=== PATIENT | female | born 1945 | race African-American/Black ===

== ENCOUNTER → 2024-10-22 | Outpatient (CLI) | payer MEDICARE, MEDICAID, SELFPAY ==
--- NOTE | 2024-10-22 16:00 | XR_ITS ---
Examination: Thyroid sonography complete Technique: Grayscale sonographic images thyroid lobes Exam date and time: October 18, 2024 1529 hrs. Indications: Thyromegaly on outside MRI examination performed one week ago Findings: Right thyroid 7.1 cm, 3.7 x 2.3 x 2.8 cm midpole nodule Left thyroid 6.4 cm, lower pole 1.9 x 0.9 x 1.3 cm Impression: Bilateral thyroid nodules, consider ultrasound-guided fine-needle aspiration of the large nodule in the mid right thyroid, 3.7 x 2.3 x 2.8 cm Significant thyromegaly
== END | disposition home or self-care (01) ==
PROVIDERS: PCP Behavior Technician; Referring Provider Behavior Technician; Visit Provider Behavior Technician
DX: E04.2 Nontoxic multinodular goiter (principal)
CPT/HCPCS: 76536

== ENCOUNTER → 2024-11-18 | Outpatient (CLI) | payer MEDICARE, MEDICAID, SELFPAY ==
[2024-11-17 14:21] LABS: Basophils % (Auto) 0 % (0-2.5); Eosinophils # (Auto) 0.1 Thou/mm3 (0.0-0.5); Eosinophils % (Auto) 1 % (0-10); Hematocrit 43.4 % (36.0-46.0); Hemoglobin 13.5 g/dL (12.0-16.0); Immature Granulocytes % (Auto) 0 % (0-0); Immature Granulocytes Auto 0.01 Thou/mm3 (0.00-0.00); Lymphocytes # (Auto) 2.3 Thou/mm3 (1.0-4.8); Lymphocytes % (Auto) 38 % (10-50); Mean Corpuscular HGB Conc 31.1 g/dl (31.0-37.0); Mean Corpuscular Hemoglobin 27.8 pg (25.0-35.0); Mean Corpuscular Volume 90 fL (80-100); Monocytes # (Auto) 0.5 Thou/mm3 (0.0-0.8); Monocytes % (Auto) 9 % (0-12); Neutrophils # (Auto) 3.1 Thou/mm3 (1.8-7.7); Neutrophils % (Auto) 51 % (37-80); Nucleated Red Blood Cell % 0 /100 WBC (0); Platelet Count 212 Thou/mm3 (140-440); RDW Standard Deviation 53.5 fL (36.4-46.3); Red Blood Count 4.85 Miln/mm3 (4.00-5.20)
[2024-11-17 14:29] LABS: INR 1.1 (0.9-1.3); Partial Thromboplastin Time 26.3 Seconds (22.0-36.0); Prothrombin Time 11.6 Seconds (9.0-12.2)
--- NOTE | 2024-11-18 09:30 | XR_ITS ---
Examination: Ultrasound-guided fine needle percutaneous aspiration thyroid nodule, mid right thyroid nodule. Thyroid sonography, limited Exam date and time: November 18, 2024 at 1043 hours INDICATIONS: Large mid pole right thyroid nodule on thyroid sonogram October 22, 2024. Technique: A timeout was completed verifying correct patient, procedure, site, positioning and special equipment if applicable. The patient was placed in supine position for the thyroid fine needle percutaneous aspiration The patient's right neck was prepped and draped in sterile fashion. Maximum barrier sterile technique, hand hygiene, ultrasound sterile technique. 1% lidocaine was used to anesthetize the skin and subcutaneous tissues to the patient's right thyroid nodule. Multiple fine needle aspirations were performed and multiple thyroid specimens placed in preservative according to the irm protocol. Specimens appears satisfactory. The attending radiologist was present for the entire procedure. Estimated blood loss 3 cc. The patient tolerated the procedure well and there were no complications. Impression: Successful ultrasound-guided fine-needle percutaneous aspiration thyroid nodule, right mid thyroid nodule.
== END | disposition home or self-care (01) ==
PROVIDERS: Radiology Diagnostic Radiology; PCP Behavior Technician; Referring Provider Behavior Technician; Visit Provider Behavior Technician
DX: E04.1 Nontoxic single thyroid nodule (principal)
CPT/HCPCS: 36415; 85025; 85610; 85730

== ENCOUNTER 2024-11-20 08:36 | Outpatient (AMB) | payer MEDICARE, MEDICAID, SELFPAY ==
[2024-11-20 08:47] VITALS: BP 143/79; PULSE 67; RESP 18; TEMP 36.4; O2SAT 90; BMI 45.7
--- NOTE | 2024-11-20 08:47 | PD.ORTHCLVIS ---
Vital signs 11/20/24 08:47 Height 1.57 m Height Method Stated Weight 113.483 kg Weight Measurement Method Standing Scale BMI 45.7 BP 143/79 H Blood Pressure Source Automatic Cuff Blood Pressure Location Left Upper Arm Position Sitting Respiration 18 Pulse 67 Pulse Source Monitor Temp 97.6 F Temp Source Temporal Artery Scan Pulse Oximetry (%) 90 L Oxygen Delivery Method Room Air Med/Allergies Allergies & Medications Allergies No Known Allergies Allergy (Verified 11/20/24 08:54) Medication Reconciliation Unobtainable 11/20/24 [History Confirmed 11/20/24] Exam Exam Patient is in no acute distress and is cooperative with the examination today. Breathing is nonlabored. Patient has a normal mood and affect. Bilateral extremities were evaluated and demonstrates sensation intact to light touch. Palpable pedal pulses are present. No significant edema is present. Bilateral hips were examined. The patient has no pain with log roll of the hips. Internal rotation to 30 degrees and external rotation to 30 degrees is painless. Negative FADIR. Right knee incision is clean dry and intact Left knee was examined today. The left knee is in varus alignment. Range of motion from 0-115 degrees. Knee is stable to varus and valgus as well as AP translation with <5mm. Patient has a negative McMurrays. There is no pain with patellofemoral compression and no crepitus noted. The knee is tender to palpation medially. Assessment and Plan Problem List (1) Arthritis of left knee: Status: Acute Plan: Patient is a morbidly obese female with diabetes and severe left knee arthritis. We would like to get weightbearing x-rays as it is only an MRI on record which shows degenerative changes. We discussed the importance of weight loss. I would like to see the patient back in approximately 2 months as she had an injection 1 month ago. We discussed that if she loses enough weight and is optimized medically, we can discuss possible total knee replacement. She would need to be optimized medically first Advanced Care Planning Discussion Advance care planning discussed with:: patient Office Procedures GNS Level of Care Nursing/Assessment Patient Status: Initial/New Patient Nursing Assessment/Reassesment: Medication Reconciliation, Update PMH in EMR and Vital Signs Coordination of Care: Complex Care and Chronic Disease 1-5, Education Complex Pt/Fam, Consent,records obtained, informed consent, 1 Ins Authorization, Lab and Imaging orders, Results/Orders obtained and Staff clarify orders New Patient Charge New Patient Point Assignment: [id number] New Patient Point Charge: ENGINEER AUTOMATED EQUIPMENT Level 4 (3677-2081) PR Intake Visit Data Collection New Patient or Established: New Patient (never been to [facility]) Reason for Visit:: LEFT KNEE PAIN Housekeeping Aid Required: No PCP or OBGYN visit in last 3 months: Yes Hx Now: No Authorities Contacted: N/A Questionairres Past Medical History Past Medical History Have you ever been diagnosed with any of the following: Cardiology Problems Hypercholesterolemia: Yes Hypertension: Yes Respiratory Problems Smoking: No Smoking Exposure: No Endocrine Problems Diabetes Mellitus Type 2: Yes Surgical History Total Knee Replacement: Yes (2020 RIGHT) Subjective Visit Visit for: new patient and knee (LEFT) Immunization / Flu Flu Vaccine in the Last 12 Months: Yes Flu Vaccine Exclusion Criteria: Already Received History of Present Illness Chief complaint: Bilateral knee pain Christine is a pleasant 78-year-old female with bilateral knee pain and left knee arthritis. The left knee pain is significantly worse than the right. She had a right total knee replacement the past. She uses a walker. She reports she has significant back pain as well. She reports that the left knee is starting to bother her quite a bit. She had 1 injection a month ago. Personal History Occupation: RETIRED Pain Pain level (0-10): 6 Pain duration: WITH MOVEMENT Pain location: inside (medial) Pain quality: sharp, dull and aching Pain timing: night, increases with activity and stairs Associated signs & symptoms: numbness, weakness and stiffness Ambulatory data Ambulatory device: walker Treatments Number of previous injections: 1 Improvement with previous injections: No Improvement with PT: No Improvement with NSAIDS: no Review of Systems Review of Systems: All systems negative unless otherwise noted in HPI.
--- NOTE | 2024-11-20 09:01 | XR_ITS ---
Examination: Bilateral knees 2 views Right lateral knee left lateral knee 2 views Bilateral axial knees single view TECHNIQUE: Bilateral AP knees single view standing, bilateral PA knees single view standing flexion Standing right lateral knee left lateral knee 2 views Bilateral axial knees single view Exam date and time: November 20, 2024 0905 hours INDICATIONS: Right knee replacement several years ago, left knee pain after falling 2022 FINDINGS: Total right knee arthroplasty. Satisfactory alignment. No loosening of the prosthetic components No patellar dislocation Advanced narrowing [id number] medial joint space left knee Significant osteoarthritis lateral and patellofemoral joints No fracture IMPRESSION: Advanced narrowing [id number] medial joint space left knee Significant osteoarthritis lateral patellofemoral joints left knee
== END 2024-11-20 09:08 | disposition home or self-care (01) ==
LOC: HODSRG 08:36
PROVIDERS: PCP Behavior Technician; Referring Provider Behavior Technician; Supervising Provider Orthopaedic Surgery Adult Reconstructive Orthopaedic Surgery; Visit Provider Orthopaedic Surgery Adult Reconstructive Orthopaedic Surgery
DX: M17.12 Unilateral primary osteoarthritis, left knee (principal); M25.562 Pain in left knee; M25.561 Pain in right knee; E11.9 Type 2 diabetes mellitus without complications; I10 Essential (primary) hypertension; E78.00 Pure hypercholesterolemia, unspecified; E66.01 Morbid (severe) obesity due to excess calories; Z68.42 Body mass index [BMI] 45.0-49.9, adult
CPT/HCPCS: 73564; 99204; G0463

== ENCOUNTER 2025-01-20 09:50 | Outpatient (AMB) | payer MEDICARE, MEDICAID, SELFPAY ==
[2025-01-20 10:23] VITALS: BP 108/65; PULSE 68; RESP 17; TEMP 36.3; O2SAT 93; BMI 46.5
--- NOTE | 2025-01-20 10:23 | PD.ORTHCLVIS ---
Vital signs 01/20/25 10:23 Height 1.57 m Height Method Stated Weight 114.816 kg Weight Measurement Method Standing Scale BMI 46.5 BP 108/65 Blood Pressure Source Automatic Cuff Blood Pressure Location Right Upper Arm Position Sitting Respiration 17 Pulse 68 Pulse Source Monitor Temp 97.3 F Temp Source Temporal Artery Scan Pulse Oximetry (%) 93 L Oxygen Delivery Method Room Air Med/Allergies Allergies & Medications Allergies No Known Allergies Allergy (Verified 01/20/25 10:24) Medication Reconciliation Unobtainable 11/20/24 [History Confirmed 01/20/25] Exam Exam Patient is in no acute distress and is cooperative with the examination today. Breathing is nonlabored. Patient has a normal mood and affect. Bilateral extremities were evaluated and demonstrates sensation intact to light touch. Palpable pedal pulses are present. No significant edema is present. Bilateral hips were examined. The patient has no pain with log roll of the hips. Internal rotation to 30 degrees and external rotation to 30 degrees is painless. Negative FADIR. Right knee incision is clean dry and intact Left knee was examined today. The left knee is in varus alignment. Range of motion from 0-115 degrees. Knee is stable to varus and valgus as well as AP translation with <5mm. Patient has a negative McMurrays. There is no pain with patellofemoral compression and no crepitus noted. The knee is tender to palpation medially. Assessment and Plan Problem List (1) Arthritis of left knee: Status: Acute Plan: Patient is a morbidly obese female with diabetes and severe left knee arthritis. We would like to get weightbearing x-rays as it is only an MRI on record which shows degenerative changes. We discussed the importance of weight loss. She will need to be medically optimized. Recommend knee cortisone injection as patient would like to proceed with conservative treatment at this time. The risks and benefits of the procedure were reviewed with the patient and patient gave verbal consent to continue with the procedure. Procedure: performed by Dr. Jones Using sterile technique the left knee was thoroughly prepped with alcohol, and approximately 1 cc of Kenalog 40 mg/mL and 4 cc of 1% lidocaine was injected without resistance into the medial tibial femoral joint space. The patient tolerated the procedure. Advanced Care Planning Discussion Advance care planning discussed with:: patient Office Procedures GNS Level of Care Nursing/Assessment Patient Status: Established Patient Nursing Assessment/Reassesment: Medication Reconciliation, Update PMH in EMR and Vital Signs Coordination of Care: Complex Care and Chronic Disease 1-5, Education Complex Pt/Fam, Consent,records obtained, informed consent, Results/Orders obtained and Staff clarify orders Established Patient Charge Established Patient Point Assignment: 95 Established Patient Point Charge: EP Level 3 (80-115) Surgical Proc/IM SQ injection Major Surgical Procedure: Yes (KNEE INJECTION ) Medication Given Medication Given Medication Given: Yes Documented Dose Given: 4 Route: Infiitration Medication Given Medication Given Medication Given: Yes Documented Dose Given: 1 Route: Infiitration Office Meds Xylocaine 10 mg/mL (1 %) injection solution Performing Provider: Romel Jones MD Performing Location: [facility] Administered by: Romel Jones MD on 01/20/25 10:53 Dose Route Admin Location Dispensed Lot Number Expiration Date [facility] Principal Investigator 20 mL Infiltration 20 mL [id number] 11/26/27 96554-601-[address] triamcinolone acetonide 40 mg/mL suspension for injection Performing Provider: Romel Jones MD Performing Location: [facility] Administered by: Romel Jones MD on 01/20/25 10:53 Dose Route Admin Location Dispensed Lot Number Expiration Date [facility] Principal Investigator 40 mg Infiltration KNEE 1 mL [id number] 08/25/26 3006-4952-20 [employer] [place] Intake Visit Data Collection New Patient or Established: New Patient (never been to [facility]) Reason for Visit:: LEFT KNEE PAIN Undercover Cop Required: No PCP or OBGYN visit in last 3 months: Yes Hx Now: No Authorities Contacted: N/A Questionairres Past Medical History Past Medical History Have you ever been diagnosed with any of the following: Cardiology Problems Hypercholesterolemia: Yes Hypertension: Yes Respiratory Problems Smoking: No Smoking Cessation Counseling: No Smoking Exposure: No Tobacco Use: No Endocrine Problems Diabetes Mellitus Type 2: Yes Surgical History Total Knee Replacement: Yes (2020 RIGHT) Subjective Visit Visit for: follow up visit and knee (BILAT KNEE PAIN ) Immunization / Flu Flu Vaccine in the Last 12 Months: Yes Flu Vaccine Exclusion Criteria: Already Received History of Present Illness Chief complaint: Bilateral knee pain Christine is a pleasant 78-year-old female with bilateral knee pain and left knee arthritis. The left knee pain is significantly worse than the right. She had a right total knee replacement the past. She uses a walker. She reports she has significant back pain as well. She reports that the left knee is starting to bother her quite a bit. She had 1 injection previously. Personal History Occupation: RETIRED Red flag PMH: none Pain Pain level (0-10): 8 Pain duration: FEW YEARS Pain location: anterior Pain quality: sharp, dull, aching, burning, shocking, electric and tingling Pain timing: night and increases with activity Associated signs & symptoms: numbness, weakness and stiffness Ambulatory data Ambulatory device: walker Walking distance (minutes): 1 Treatments Number of previous injections: 4 (FOR A SHORT TIME THE MEDICATION HELPED W/ PAIN ) Improvement with previous injections: Yes Number of Physical Therapy sessions: 4 Improvement with PT: Yes Improvement with NSAIDS: n/a Review of Systems Review of Systems: All systems negative unless otherwise noted in HPI.
== END 2025-01-20 11:02 | disposition home or self-care (01) ==
LOC: HODSRG 09:50
PROVIDERS: PCP Behavior Technician; Referring Provider Behavior Technician; Supervising Provider Orthopaedic Surgery Adult Reconstructive Orthopaedic Surgery; Visit Provider Orthopaedic Surgery Adult Reconstructive Orthopaedic Surgery
DX: M17.12 Unilateral primary osteoarthritis, left knee (principal); E11.9 Type 2 diabetes mellitus without complications; E66.01 Morbid (severe) obesity due to excess calories; Z68.42 Body mass index [BMI] 45.0-49.9, adult; I10 Essential (primary) hypertension; E78.00 Pure hypercholesterolemia, unspecified
CPT/HCPCS: 20610; 99213; J3301; J3490; G0463

== ENCOUNTER 2025-04-21 09:21 | Outpatient (AMB) | payer MEDICARE, MEDICAID, SELFPAY ==
--- NOTE | 2025-04-21 09:45 | ORTHONT_ITS ---
Vital signs 04/21/25 09:46 Height 1.57 m Height Method Stated Weight 115.326 kg Weight Measurement Method Standing Scale BMI 46.7 BP 135/71 H Blood Pressure Source Automatic Cuff Blood Pressure Location Left Upper Arm Position Sitting Respiration 18 Pulse 83 Pulse Source Monitor Temp 98.3 F Temp Source Temporal Artery Scan Pulse Oximetry (%) 85 L Oxygen Delivery Method Room Air Med/Allergies Allergies & Medications Allergies No Known Allergies Allergy (Verified 04/21/25 09:46) Medication Reconciliation Unobtainable 11/20/24 [History Confirmed 04/21/25] Exam Exam Patient is in no acute distress and is cooperative with the examination today. Breathing is nonlabored. Patient has a normal mood and affect. Bilateral extremities were evaluated and demonstrates sensation intact to light touch. Palpable pedal pulses are present. No significant edema is present. Bilateral hips were examined. The patient has no pain with log roll of the hips. Internal rotation to 30 degrees and external rotation to 30 degrees is painless. Negative FADIR. Right knee incision is clean dry and intact Left knee was examined today. The left knee is in varus alignment. Range of motion from 0-115 degrees. Knee is stable to varus and valgus as well as AP translation with <5mm. Patient has a negative McMurrays. There is no pain with patellofemoral compression and no crepitus noted. The knee is tender to palpation medially. Left knee demonstrates complete joint space narrowing medially Assessment and Plan Problem List (1) Arthritis of left knee: Status: Acute Plan: Patient is a morbidly obese female with diabetes and severe left knee arthritis. We would like to get weightbearing x-rays as it is only an MRI on record which shows degenerative changes. We discussed the importance of weight loss. She will need to be medically optimized. Recommend knee cortisone injection as patient would like to proceed with conservative treatment at this time. The risks and benefits of the procedure were reviewed with the patient and patient gave verbal consent to continue with the procedure. Procedure: performed by Dr. Jones Using sterile technique the left knee was thoroughly prepped with alcohol, and approximately 1 cc of Depo-Medrol 80mg/mL and 4 cc of 0.2% ropivacaine was injected without resistance into the medial tibial femoral joint space. The patient tolerated the procedure. Advanced Care Planning Discussion Advance care planning discussed with:: patient Office Procedures GNS Level of Care Nursing/Assessment Patient Status: Established Patient Nursing Assessment/Reassesment: Medication Reconciliation, Update PMH in EMR and Vital Signs Coordination of Care: Complex Care and Chronic Disease 1-5, Education Complex Pt/Fam, Consent,records obtained, informed consent, Results/Orders obtained and Staff clarify orders Established Patient Charge Established Patient Point Assignment: 95 Established Patient Point Charge: EP Level 3 (80-115) Surgical Proc/IM SQ injection Major Surgical Procedure: Yes (KNEE INJECTION ) Medication Given Medication Given Medication Given: Yes Documented Dose Given: 1 Route: Infiitration Medication Given Medication Given Medication Given: Yes Documented Dose Given: 4 Route: Infiitration Office Meds methylprednisolone acetate 80 mg/mL suspension for injection Performing Provider: Romel Jones MD Performing Location: [facility] Administered by: Romel Jones MD on 04/21/25 10:27 Dose Route Admin Location Dispensed Lot Number Expiration Date [facility] Chief Dog License Inspector 80 mg intra-articular KNEE 1 mL [id number] 01/24/27 [address]-6 [facility] ropivacaine (PF) 2 mg/mL (0.2 %) injection solution Performing Provider: Romel Jones MD Performing Location: [facility] Administered by: Romel Jones MD on 04/21/25 10:27 Dose Route Admin Location Dispensed Lot Number Expiration Date [facility] Chief Dog License Inspector 20 mL Infiltration KNEE 20 mL [id number] 09/26/27 40822-358-27 [facility] Intake Visit Data Collection New Patient or Established: Established Patient (seen at [facility] within 3 years) Reason for Visit:: LEFT KNEE PAIN Turbine Attendant Required: No PCP or OBGYN visit in last 3 months: Yes Hx Now: No Do You Feel Safe at Home: Yes Authorities Contacted: N/A Questionairres Past Medical History Past Medical History Have you ever been diagnosed with any of the following: Cardiology Problems Hypercholesterolemia: Yes Hypertension: Yes Respiratory Problems Smoking: No Smoking Cessation Counseling: No Smoking Exposure: No Tobacco Use: No Endocrine Problems Diabetes Mellitus Type 2: Yes Surgical History Total Knee Replacement: Yes (2020 RIGHT) Subjective Visit Visit for: follow up visit and knee (BILAT KNEE PAIN ) Immunization / Flu Flu Vaccine in the Last 12 Months: Yes Flu Vaccine Exclusion Criteria: Already Received History of Present Illness Chief complaint: Bilateral knee pain Christine is a pleasant 78-year-old female with bilateral knee pain and left knee arthritis. The left knee pain is significantly worse than the right. She had a right total knee replacement the past. She uses a walker. She reports she has significant back pain as well. She reports that the left knee is starting to bother her quite a bit. She had 2 injections previously. Personal History Occupation: RETIRED Red flag PMH: none Pain Pain level (0-10): 8 Pain duration: FEW YEARS Pain location: anterior Pain quality: sharp, dull, aching, burning, shocking, electric and tingling Pain timing: night and increases with activity Associated signs & symptoms: numbness, weakness and stiffness Ambulatory data Ambulatory device: walker Walking distance (minutes): 1 Treatments Number of previous injections: 4 (FOR A SHORT TIME THE MEDICATION HELPED W/ PAIN ) Improvement with previous injections: Yes Number of Physical Therapy sessions: 4 Improvement with PT: Yes Improvement with NSAIDS: n/a Review of Systems Review of Systems: All systems negative unless otherwise noted in HPI.
[2025-04-21 09:46] VITALS: BP 135/71; PULSE 83; RESP 18; TEMP 36.8; O2SAT 85; BMI 46.7
== END 2025-04-21 10:29 | disposition home or self-care (01) ==
LOC: HODSRG 09:21
PROVIDERS: PCP Behavior Technician; Referring Provider Behavior Technician; Supervising Provider Orthopaedic Surgery Adult Reconstructive Orthopaedic Surgery; Visit Provider Orthopaedic Surgery Adult Reconstructive Orthopaedic Surgery
DX: M17.12 Unilateral primary osteoarthritis, left knee (principal); E11.9 Type 2 diabetes mellitus without complications; I10 Essential (primary) hypertension; E78.00 Pure hypercholesterolemia, unspecified; Z96.651 Presence of right artificial knee joint; E66.01 Morbid (severe) obesity due to excess calories; Z68.42 Body mass index [BMI] 45.0-49.9, adult
CPT/HCPCS: 20610; 99213; J1010; J2795; G0463

== ENCOUNTER 2025-07-28 09:03 | Outpatient (AMB) | payer MEDICARE, MEDICAID, SELFPAY ==
--- NOTE | 2025-07-28 09:35 | ORTHONT_ITS ---
Vital signs 07/28/25 09:36 Height 1.57 m Height Method Stated Weight 116.318 kg Weight Measurement Method Standing Scale BMI 47.2 BP 157/81 H Blood Pressure Source Automatic Cuff Blood Pressure Location Left Upper Arm Position Sitting Respiration 18 Pulse 77 Pulse Source Monitor Temp 98.1 F Temp Source Temporal Artery Scan Pulse Oximetry (%) 90 L Oxygen Delivery Method Room Air Med/Allergies Allergies & Medications Allergies No Known Allergies Allergy (Verified 07/28/25 09:38) Exam Exam Patient is in no acute distress and is cooperative with the examination today. Breathing is nonlabored. Patient has a normal mood and affect. Bilateral extremities were evaluated and demonstrates sensation intact to light touch. Palpable pedal pulses are present. No significant edema is present. Bilateral hips were examined. The patient has no pain with log roll of the hips. Internal rotation to 30 degrees and external rotation to 30 degrees is painless. Negative FADIR. Right knee incision is clean dry and intact. Range of motion is 0 to 30 degrees Left knee was examined today. The left knee is in varus alignment. Range of motion from 0-115 degrees. Knee is stable to varus and valgus as well as AP translation with <5mm. Patient has a negative McMurrays. There is no pain with patellofemoral compression and no crepitus noted. The knee is tender to palpation medially. Left knee demonstrates complete joint space narrowing medially Assessment and Plan Problem List (1) Arthritis of left knee: Status: Acute Plan: Patient is a morbidly obese female with diabetes and severe left knee arthritis. Recommend knee cortisone injection as patient would like to proceed with conservative treatment at this time. The risks and benefits of the procedure were reviewed with the patient and patient gave verbal consent to continue with the procedure. Procedure: performed by Dr. Jones Using sterile technique the left knee was thoroughly prepped with alcohol, and approximately 1 cc of Depo-Medrol 80mg/mL and 4 cc of 0.2% ropivacaine was injected without resistance into the medial tibial femoral joint space. The patient tolerated the procedure. (2) Pain in right knee: Status: Acute Plan: Patient is a 79-year-old female. with a right total knee replacement done 6 years ago. She has had pain since surgery. The significant swelling. Will order an ESR and CRP to rule out infection. The right knee is also significantly stiff. We will order new x-rays as well and see her back once this is done Advanced Care Planning Discussion Advance care planning discussed with:: patient Office Procedures GNS Level of Care Nursing/Assessment Patient Status: Established Patient Nursing Assessment/Reassesment: Medication Reconciliation, Update PMH in EMR and Vital Signs Coordination of Care: Complex Care and Chronic Disease 1-5, Education Complex Pt/Fam, Consent,records obtained, informed consent, Results/Orders obtained and Staff clarify orders Established Patient Charge Established Patient Point Assignment: 95 Established Patient Point Charge: EP Level 3 (80-115) Surgical Proc/IM SQ injection Minor Surgical Procedure: Yes (LEFT KNEE INJECTION) Medication Given Medication Given Medication Given: Yes Documented Dose Given: 1 Route: Infiitration Medication Given Medication Given Medication Given: Yes Documented Dose Given: 4 Route: Infiitration Office Meds methylprednisolone acetate 80 mg/mL suspension for injection Performing Provider: Romel Jones MD Performing Location: [facility] Administered by: Romel Jones MD on 07/28/25 10:51 Dose Route Admin Location Dispensed Lot Number Expiration Date Pack age [facility] [employer] 80 mg intra-articular 1 mL [id number] 03/25/27 [address]-9 [id number] [employer] ropivacaine (PF) 2 mg/mL (0.2 %) injection solution Performing Provider: Romel Jones MD Performing Location: [facility] Administered by: Romel Jones MD on 07/28/25 10:51 Dose Route Admin Location Dispensed Lot Number Expiration Date Pack age [facility] [employer] 20 mL Infiltration 20 mL [id number] 09/25/27 05701-430-75 [id number] [facility] Intake Visit Data Collection New Patient or Established: Established Patient (seen at [facility] within 3 years) Book Critic Required: No PCP or OBGYN visit in last 3 months: Yes Hx Now: No Do You Feel Safe at Home: Yes Authorities Contacted: N/A Questionairres Past Medical History Past Medical History Have you ever been diagnosed with any of the following: Cardiology Problems Hypercholesterolemia: Yes Hypertension: Yes Respiratory Problems Smoking: No Smoking Cessation Counseling: No Smoking Exposure: No Tobacco Use: No Endocrine Problems Diabetes Mellitus Type 2: Yes Surgical History Total Knee Replacement: Yes (2020 RIGHT) Subjective Visit Visit for: follow up visit and knee (BILAT KNEE PAIN ) Immunization / Flu Flu Vaccine in the Last 12 Months: Yes Flu Vaccine Exclusion Criteria: Already Received History of Present Illness Chief complaint: Bilateral knee pain Christine is a pleasant 78-year-old female with bilateral knee pain and left knee arthritis. The left knee pain is significantly worse than the right. She had a right total knee replacement the past. She uses a walker. She reports she has significant back pain as well. She reports that the left knee is starting to bother her quite a bit. She had 2 injections previously. She reports that the right knee hurts siginificantly more than the left at this point in time Personal History Occupation: RETIRED Red flag PMH: none Pain Pain level (0-10): 8 Pain duration: FEW YEARS Pain location: anterior Pain quality: sharp, dull, aching, burning, shocking, electric and tingling Pain timing: night and increases with activity Associated signs & symptoms: numbness, weakness and stiffness Ambulatory data Ambulatory device: walker Walking distance (minutes): 1 Treatments Number of previous injections: 4 (FOR A SHORT TIME THE MEDICATION HELPED W/ PAIN ) Improvement with previous injections: Yes Number of Physical Therapy sessions: 4 Improvement with PT: Yes Improvement with NSAIDS: n/a Review of Systems Review of Systems: All systems negative unless otherwise noted in HPI.
[2025-07-28 09:36] VITALS: BP 157/81; PULSE 77; RESP 18; TEMP 36.7; O2SAT 90; BMI 47.2
--- NOTE | 2025-07-28 09:44 | XR_ITS ---
EXAMINATION: Bilateral AP knees standing single view Right knee PA lateral knee 2 views TECHNIQUE: Bilateral AP knees standing single view PA standing flexion right knee, lateral standing right knee, 2 views Date and time: July 28, 2025, 0956 hours INDICATIONS: Postop right knee 6 years, right knee pain. FINDINGS: Prominent osteopenia Total right knee arthroplasty. 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
== END 2025-07-28 09:47 | disposition home or self-care (01) ==
LOC: HODSRG 09:03
PROVIDERS: PCP Behavior Technician; Referring Provider Behavior Technician; Supervising Provider Orthopaedic Surgery Adult Reconstructive Orthopaedic Surgery; Visit Provider Orthopaedic Surgery Adult Reconstructive Orthopaedic Surgery
DX: M25.562 Pain in left knee (principal); M25.561 Pain in right knee; M17.12 Unilateral primary osteoarthritis, left knee; Z96.651 Presence of right artificial knee joint; M54.9 Dorsalgia, unspecified; I10 Essential (primary) hypertension; E11.9 Type 2 diabetes mellitus without complications; E66.01 Morbid (severe) obesity due to excess calories; Z68.42 Body mass index [BMI] 45.0-49.9, adult; M25.661 Stiffness of right knee, not elsewhere classified
CPT/HCPCS: 20610; 73564; 99213; J1010; J2795; G0463

== ENCOUNTER → 2025-07-28 | Outpatient (CLI) | payer MEDICARE, MEDICAID, SELFPAY ==
[2025-07-28 13:04] LABS: Sed Rate (ESR) 34 mm/hr (0-30)
[2025-07-28 13:13] LABS: C-Reactive Protein < 0.5 mg/dL (0.0-0.9)
== END | disposition home or self-care (01) ==
PROVIDERS: PCP Physician Assistant; Referring Provider Orthopaedic Surgery Adult Reconstructive Orthopaedic Surgery; Visit Provider Orthopaedic Surgery Adult Reconstructive Orthopaedic Surgery
DX: M25.561 Pain in right knee (principal)
CPT/HCPCS: 36415; 85652; 86140